=== PATIENT | male | born 1960 | race Caucasian/White ===

== ENCOUNTER → 2016-06-21 | Outpatient (REF) | payer BC, OTHER ==
[~2016-06-21] MED LIST: CARV6.25 PO; EFFE37.527 PO; PRAD150C PO
[2016-06-21 13:50] LABS: ALBUMIN 3.9 GM/DL (3.2-5.2); ALBUMIN/GLOBULIN RATIO 1.39 (1.00-1.93); ALKALINE PHOSPHATASE 56 U/L (45-117); ALT/SGPT 39 U/L (12-78); ANION GAP 6 MEQ/L (8-16); AST/SGOT 21 U/L (15-37); BILIRUBIN,TOTAL 0.6 MG/DL (0.2-1.0); BLOOD UREA NITROGEN 19 MG/DL (7-18); CALCIUM LEVEL 8.8 MG/DL (8.5-10.1); CARBON DIOXIDE LEVEL 31 MEQ/L (21-32); CHLORIDE LEVEL 105 MEQ/L (98-107); CHOLESTEROL LEVEL 122 MG/DL (<200); CREATININE FOR GFR 0.94 MG/DL (0.70-1.30); FERRITIN 81 NG/ML (26-388); GLOMERULAR FILTRATION RATE > 60.0 (>56); GLUCOSE, FASTING 91 MG/DL (70-105); PERCENT SATURATION 39.4 % (19.7-37.4); POTASSIUM SERUM 4.5 MEQ/L (3.5-5.1); SODIUM LEVEL 142 MEQ/L (136-145); TOTAL IRON BINDING CAPACITY 320 UG/DL (250-450); TOTAL PROTEIN 6.7 GM/DL (6.4-8.2); TRIGLYCERIDES LEVEL 114 MG/DL (<150)
[2016-06-24 11:20] LABS: PRETREATED FOLATE FOR RBCFOL 8.5 NG/ML
== END ==
LOC: M SFHCPLAZ 12:48
PROVIDERS: ATTEND Family Medicine
DX: E55.9 Vitamin D deficiency, unspecified (principal); E66.01 Morbid (severe) obesity due to excess calories; R73.01 Impaired fasting glucose; Z12.5 Encounter for screening for malignant neoplasm of prostate; E53.8 Deficiency of other specified B group vitamins; E66.3 Overweight; N40.1 Benign prostatic hyperplasia with lower urinary tract symptoms; R53.83 Other fatigue
CPT/HCPCS: 36415; 80053; 80061; 82306; 82728; 82747; 83036; 83550; 83970; 84425; G0103

== ENCOUNTER → 2016-07-25 | Outpatient (CLI) | payer BC, OTHER ==
[~2016-07-25] MED LIST changes: +E-Z PAQUE 60% w/v SUSP 355ML BOTTLE As Ordered ONE; +E-Z-HD 98% w/w 340GM SUSP BTL As Ordered ONE
--- NOTE | 2016-07-27 10:18 | REP ---
Clinical: Continued weight gain with prior gastric bypass surgery. Technique: Upper GI with small bowel follow-through using barium substrates. Findings: Mandrel Cleaner film of the abdomen and pelvis is unremarkable. The esophagus demonstrates normal motility, mucosal outline, and contour without intrinsic or extrinsic abnormality and there is no evidence for gastroesophageal reflux during examination. The the patient is status post gastric bypass with normal appearance to the residual gastric pouch and no evidence for extravasation into the excluded portion of the stomach. A normal gastroenteric anastomosis is noted with appropriate passage of contrast into the small bowel. Small bowel portion of the examination demonstrates normal mucosal outline, motility and overall appearance to the jejunum and ileum within normal terminal ileum and ileocecal valve identified in the right lower quadrant. Total fluoroscopic time 2 minutes 3 seconds. Impression: 1. Evidence for gastric bypass surgery without complication or abnormality. 2. Normal esophagus and no evidence for gastroesophageal reflux disease. 3. Normal appearance to the small bowel including terminal ileum and ileocecal valve. Signed by Alexey Asher MD 07/27/2016 10:09 A
== END ==
LOC: M RAD 08:29
PROVIDERS: ATTEND Family Medicine
DX: R63.5 Abnormal weight gain (principal); Z98.84 Bariatric surgery status

== ENCOUNTER → 2016-11-09 | Outpatient (CLI) | payer BC, OTHER ==
[~2016-11-09] MED LIST changes: -E-Z PAQUE 60% w/v SUSP 355ML BOTTLE As Ordered ONE; -E-Z-HD 98% w/w 340GM SUSP BTL As Ordered ONE
--- NOTE | 2016-11-09 10:04 | REP ---
RIGHT KNEE, FOUR VIEWS: HISTORY: Pain. There is no acute fracture or dislocation. There is narrowing of the medial knee joint space. Small osteophytes are present on the tibia and patella. IMPRESSION: Degenerative change as described above. Signed by Jan Barry MD 11/09/2016 10:14 A
== END ==
LOC: M WUC 08:56
PROVIDERS: ATTEND Physician Assistant
DX: M25.561 Pain in right knee (principal); M25.761 Osteophyte, right knee; M17.11 Unilateral primary osteoarthritis, right knee

== ENCOUNTER → 2017-08-23 | Outpatient (REF) | payer BC, OTHER ==
[2017-08-23 13:26] LABS: HEMATOCRIT 40.4 % (42.0-52.0); HEMOGLOBIN 13.6 g/dl (13.5-17.5); MEAN CORPUSCULAR HEMOGLOBIN 30.6 pg (27.0-33.0); MEAN CORPUSCULAR HGB CONC 33.7 g/dl (32.0-36.5); PLATELET COUNT, AUTOMATED 192 10^3/uL (150-450); RED BLOOD COUNT 4.44 10^6/uL (4.30-6.10); RED CELL DISTRIBUTION WIDTH 13.7 % (11.5-14.5); WHITE BLOOD COUNT 8.5 10^3/uL (4.0-10.0)
[2017-08-23 13:40] LABS: ANION GAP 4 MEQ/L (8-16); BLOOD UREA NITROGEN 16 MG/DL (7-18); CALCIUM LEVEL 8.6 MG/DL (8.5-10.1); CARBON DIOXIDE LEVEL 30 MEQ/L (21-32); CHLORIDE LEVEL 107 MEQ/L (98-107); CHOLESTEROL LEVEL 121 MG/DL (<200); CREATININE FOR GFR 0.93 MG/DL (0.70-1.30); GLOMERULAR FILTRATION RATE > 60.0 (>56); GLUCOSE, FASTING 81 MG/DL (70-100); HDL CHOLESTEROL 42 MG/DL (>40); LDL CHOLESTEROL 65.2 MG/DL (<100); MAGNESIUM LEVEL 2.1 MG/DL (1.8-2.4); NON-HDL-C 79 MG/DL; POTASSIUM SERUM 4.2 MEQ/L (3.5-5.1); SODIUM LEVEL 141 MEQ/L (136-145); TRIGLYCERIDES LEVEL 69 MG/DL (<150)
== END ==
LOC: M LAB REF 12:52
DX: I48.2 Chronic atrial fibrillation (principal); Z13.220 Encounter for screening for lipoid disorders

== ENCOUNTER → 2017-11-21 | Outpatient (REF) | payer OTHER ==
[2017-11-21 16:03] LABS: BASO # 0.1 10^3/uL (0.0-0.2); BASO % 0.8 % (0.0-1.0); EOS # 0.1 10^3/uL (0.0-0.50); HEMATOCRIT 41.3 % (42.0-52.0); HEMOGLOBIN 14.5 g/dl (13.5-17.5); IMMATURE GRANULOCYTE % 0.4 % (0-3.0); LYMPH # 2.5 10^3/uL (1.5-4.5); LYMPH % 31.8 % (24.0-44.0); MEAN CORPUSCULAR HEMOGLOBIN 31.5 pg (27.0-33.0); MEAN CORPUSCULAR HGB CONC 35.1 g/dl (32.0-36.5); MEAN CORPUSCULAR VOLUME 89.6 fl (80.0-96.0); MONO # 0.8 10^3/uL (0.0-0.8); MONO % 9.6 % (0.0-5.0); NEUTROPHILS # 4.5 10^3/uL (1.8-7.7); NEUTROPHILS % 56.4 % (36.0-66.0); PLATELET COUNT, AUTOMATED 205 10^3/uL (150-450); RED BLOOD COUNT 4.61 10^6/uL (4.30-6.10); RED CELL DISTRIBUTION WIDTH 13.6 % (11.5-14.5); RETIC HEMOGLOBIN EQUIVALENT 35.4 pg (24-36); RETICULOCYTE # 78.8 10^9/L (17-77); RETICULOCYTE % 1.7 % (0.5-1.5)
[2017-11-21 16:13] LABS: ESTIMATED AVERAGE GLUCOSE 120 MG/DL (60-110); HEMOGLOBIN A1c 5.8 %
[2017-11-21 16:14] LABS: PTH INTACT 68.1 PG/ML (18.5-88.0); TOTAL 25(OH) VITAMIN D 44.6 NG/ML (30.0-100.0); VITAMIN B12 LEVEL 437 PG/ML (247-911)
[2017-11-21 16:15] LABS: ALBUMIN/GLOBULIN RATIO 1.25 (1.00-1.93); ALKALINE PHOSPHATASE 47 U/L (45-117); ALT/SGPT 28 U/L (12-78); ANION GAP 5 MEQ/L (8-16); AST/SGOT 17 U/L (7-37); BILIRUBIN,TOTAL 0.8 MG/DL (0.2-1.0); BLOOD UREA NITROGEN 24 MG/DL (7-18); CALCIUM LEVEL 8.8 MG/DL (8.5-10.1); CARBON DIOXIDE LEVEL 32 MEQ/L (21-32); CHLORIDE LEVEL 105 MEQ/L (98-107); CREATININE FOR GFR 0.95 MG/DL (0.70-1.30); FREE T4 0.97 NG/DL (0.76-1.46); GLOMERULAR FILTRATION RATE > 60.0 (>56); GLUCOSE, FASTING 77 MG/DL (70-100); POTASSIUM SERUM 4.2 MEQ/L (3.5-5.1); PSA SCREENING 1.94 NG/ML (< 4.0); SODIUM LEVEL 142 MEQ/L (136-145); THYROID STIMULATING HORMONE 0.915 uIU/ML (0.358-3.740); TOTAL PROTEIN 7.2 GM/DL (6.4-8.2)
[2017-11-23 15:06] LABS: INSULIN LEVEL 5.6 uIU/mL (2.6-24.9)
== END ==
LOC: M SFHCPLAZ 15:42
DX: E55.9 Vitamin D deficiency, unspecified (principal); R73.01 Impaired fasting glucose; E53.8 Deficiency of other specified B group vitamins

== ENCOUNTER → 2018-08-15 | Outpatient (CLI) | payer BC, OTHER ==
[~2018-08-15] MED LIST changes: +EFFE37.5 PO; -EFFE37.527 PO; -PRAD150C PO; +PRAD150C6 PO
--- NOTE | 2018-08-15 16:36 | REP ---
Chest two views HISTORY: Shortness of breath Comparison: 06/16/2009 Linear density is present in the left lower lobe consistent with scar. The right lung is clear. The heart is normal in size. The pulmonary vasculature is normal in appearance. The bony structure is intact. IMPRESSION: No acute disease. Electronically Signed by Jan Barry MD 08/15/2018 04:27 P
== END ==
LOC: M SMT 14:31
PROVIDERS: ATTEND Nurse Practitioner Adult Health
DX: R06.02 Shortness of breath (principal)

== ENCOUNTER → 2018-09-21 | Outpatient (REF) | payer OTHER ==
[2018-09-21 12:05] LABS: BASO % 0.5 % (0.0-1.0); EOS # 0.1 10^3/uL (0.0-0.50); HEMATOCRIT 41.6 % (42.0-52.0); HEMOGLOBIN 14.5 g/dl (13.5-17.5); LYMPH # 2.6 10^3/uL (1.5-4.5); LYMPH % 29.6 % (24.0-44.0); MEAN CORPUSCULAR HGB CONC 34.9 g/dl (32.0-36.5); MEAN CORPUSCULAR VOLUME 91.8 fl (80.0-96.0); MONO % 11.2 % (0.0-5.0); NEUTROPHILS % 57.5 % (36.0-66.0); PLATELET COUNT, AUTOMATED 186 10^3/uL (150-450); RED BLOOD COUNT 4.53 10^6/uL (4.30-6.10); WHITE BLOOD COUNT 8.6 10^3/uL (4.0-10.0)
[2018-09-21 12:25] LABS: CHOLESTEROL RISK RATIO 2.815 (<5)
[2018-09-21 13:41] LABS: HEMOGLOBIN A1c 5.4 %
[2018-09-21 13:55] LABS: HEMATOCRIT 41.6 % (42.0-52.0)
== END ==
LOC: M SFHCPLAZ 09:21
PROVIDERS: ATTEND Family Medicine
DX: Z12.5 Encounter for screening for malignant neoplasm of prostate (principal); E53.8 Deficiency of other specified B group vitamins; R73.01 Impaired fasting glucose; E78.2 Mixed hyperlipidemia
CPT/HCPCS: 36415; 80061; 82607; 82747; 83036; 83525; 85025; G0103

== ENCOUNTER → 2018-09-21 | Outpatient (CLI) | payer BC, OTHER ==
--- NOTE | 2018-09-21 15:46 | REP ---
CHEST FLUORO SNIFF TEST: Fluoroscopy is performed with deep breathing. Both hemidiaphragms move in appropriate direction with inspiration and expiration. There is relatively symmetrical motion bilaterally. There is a slightly greater degree of left diaphragmatic excursion. With inspiration, the degree of depression of the left hemidiaphragm is slightly greater than the right and with expiration, the degree of superior excursion of the left hemidiaphragm is slightly greater than the right. The study is otherwise unremarkable. Electronically Signed by Eduar Toro MD 09/25/2018 10:05 A
== END ==
LOC: M RAD 13:23
PROVIDERS: ATTEND Nurse Practitioner Adult Health
DX: R06.02 Shortness of breath (principal)

== ENCOUNTER → 2018-10-23 | Outpatient (CLI) | payer BC, OTHER ==
[~2018-10-23] MED LIST changes: +METHACHOLINE KIT (J7674) INH ONE
--- NOTE | 2018-10-23 09:41 | PFTRPT ---
Height: 69.00 Inches Weight: 278.00 Lbs BSA: 2.38 Diagnosis: R06.02 DATE OF PROCEDURE: 10/23/2018 ORDERED BY: ABELARDO Roe INTERPRETATION: Study of excellent technical quality. Under protocol, methacholine was administered. At a dose of 0.25 mg or 1.375 CDUs, a 32% decline in the FEV1 was noted. PC of 0.05 is significant. Flow rates did return to baseline post bronchodilator administration. IMPRESSION: Positive methacholine challenge study. MTDD
== END ==
LOC: M CARPUL 09:04
PROVIDERS: ATTEND Nurse Practitioner Adult Health
DX: R06.02 Shortness of breath (principal)
CPT/HCPCS: 94070; J7674

== ENCOUNTER → 2019-10-31 | Outpatient (REF) | payer OTHER ==
[~2019-10-31] MED LIST changes: -METHACHOLINE KIT (J7674) INH ONE
== END ==
LOC: M LAB REF 08:51
PROVIDERS: ATTEND Surgery
DX: D17.21 Benign lipomatous neoplasm of skin and subcutaneous tissue of right arm (principal); D17.22 Benign lipomatous neoplasm of skin and subcutaneous tissue of left arm

== ENCOUNTER → 2020-03-27 | Outpatient (CLI) | payer BC, OTHER ==
--- NOTE | 2020-03-27 10:13 | REPPI ---
INDICATION: LEFT SHOULER PAIN, INJURY BACK IN JULY COMPARISON: None. TECHNIQUE: Internal rotation, external rotation, and Y view. FINDINGS: Mild/early moderate degenerative changes include cortical irregularity at the acromioclavicular joint with inferior spurring at the acromion as well as cortical irregularity to the calcified glenoid rim. Humeral head appears intact and relatively normal. Subacromial space is normal. No obvious calcified loose bodies are identified. No acute fracture or dislocation noted. IMPRESSION: Mild/early moderate degenerative changes. No evidence for acute fracture or dislocation. <Electronically signed by Alexey Asher > 03/27/20 [id number]
== END ==
LOC: M WUC 09:37
PROVIDERS: ATTEND Nurse Practitioner Family
DX: M25.712 Osteophyte, left shoulder (principal); M25.512 Pain in left shoulder

== ENCOUNTER → 2020-10-30 | Outpatient (CLI) | payer BC, OTHER ==
[~2020-10-30] MED LIST changes: +LIDOCAINE 1% MDV 20ML VIAL As Ordered ONE; +methylPREDNISolone SUSP 40MG/ML 1ML VIAL (DEPO MEDROL) As Ordered ONE
--- NOTE | 2020-12-10 11:19 | REP ---
INDICATION: BICIPITAL TENDINITIS LT SHOULDER. COMPARISON: None. TECHNIQUE: The procedure was performed by NERI Montalvo, under the direct supervision of Dr. Cortez. The risks and benefits of the procedure were explained to the patient and an informed consent was obtained both verbally and written. Directly prior to the start of the procedure a formal time-out was completed in the procedure room. FINDINGS: Using ultrasound guidance the left biceps tendon was localized. The skin was prepped and draped in a sterile fashion. A 25 gauge needle was inserted and as it was advanced to the 2 mL of lidocaine was injected as a local anesthetic. Three mL of a solution containing 2 mL 1% lidocaine 10 mg/ml and 1 mL Depo-Medrol 40 milligrams/milliliter was injected into the tendon sheath. The needle was removed and hemostasis was achieved. The patient tolerated the procedure well and there were no immediate complications. After the appropriate amount of monitored convalescence the patient was discharged from the department. IMPRESSION: 1. Ultrasound-guided left biceps tendon sheath injection injection. <Electronically signed by Celeste Hilton > 12/10/20 1005 <Electronically signed by Everett Cortez > 12/10/20 [id number]
== END ==
LOC: M IRPRO 10:33
PROVIDERS: ATTEND Physician Assistant Surgical
DX: M75.22 Bicipital tendinitis, left shoulder (principal)
CPT/HCPCS: 20550; 76942; J1030

== ENCOUNTER → 2020-11-20 | Outpatient (REF) | payer OTHER ==
[~2020-11-20] MED LIST changes: -LIDOCAINE 1% MDV 20ML VIAL As Ordered ONE; -methylPREDNISolone SUSP 40MG/ML 1ML VIAL (DEPO MEDROL) As Ordered ONE
[2020-11-20 11:55] LABS: BASO # 0.1 10^3/uL (0.0-0.2); BASO % 0.8 % (0.0-1.0); EOS # 0.2 10^3/uL (0.0-0.5); LYMPH % 26.6 % (24.0-44.0); MEAN CORPUSCULAR HEMOGLOBIN 31.3 pg (27.0-33.0); MEAN CORPUSCULAR HGB CONC 34.1 g/dl (32.0-36.5); MEAN CORPUSCULAR VOLUME 91.5 fl (80.0-96.0); MONO # 0.7 10^3/uL (0.0-0.8); MONO % 9.9 % (2.0-8.0); NEUTROPHILS # 4.5 10^3/uL (1.5-8.5); NEUTROPHILS % 60.4 % (36.0-66.0); PLATELET COUNT, AUTOMATED 181 10^3/uL (150-450); RED BLOOD COUNT 4.48 10^6/uL (4.30-6.10); WHITE BLOOD COUNT 7.5 10^3/uL (4.0-10.0)
[2020-11-20 12:33] LABS: ALBUMIN 3.9 GM/DL (3.2-5.2); ALT/SGPT 43 U/L (12-78); BILIRUBIN,TOTAL 0.7 MG/DL (0.2-1.0); BLOOD UREA NITROGEN 15 MG/DL (7-18); CALCIUM LEVEL 8.8 MG/DL (8.5-10.1); CARBON DIOXIDE LEVEL 31 MEQ/L (21-32); CHLORIDE LEVEL 104 MEQ/L (98-107); CHOLESTEROL LEVEL 108 MG/DL (<200); CREATININE FOR GFR 1.09 MG/DL (0.70-1.30); GLOMERULAR FILTRATION RATE > 60.0 (>56); GLUCOSE, FASTING 89 MG/DL (70-100); HDL CHOLESTEROL 40 MG/DL (>40); LDL CHOLESTEROL 58 MG/DL (<100); NON-HDL-C 68 MG/DL; POTASSIUM SERUM 4.8 MEQ/L (3.5-5.1); SODIUM LEVEL 140 MEQ/L (136-145); TOTAL 25(OH) VITAMIN D 41.9 NG/ML (30.0-100.0); TOTAL PROTEIN 6.7 GM/DL (6.4-8.2); TRIGLYCERIDES LEVEL 51 MG/DL (<150)
== END ==
LOC: M SFHCCLAY 07:05
PROVIDERS: ATTEND Nurse Practitioner Family
DX: E78.2 Mixed hyperlipidemia (principal); R73.01 Impaired fasting glucose; Z12.5 Encounter for screening for malignant neoplasm of prostate; E55.9 Vitamin D deficiency, unspecified
CPT/HCPCS: 80053; 80061; 82306; 85025; G0103

== ENCOUNTER → 2021-06-17 | Outpatient (REF) | payer OTHER | LOC: M SFHCLERA 11:06 | PROVIDERS: ATTEND Family Medicine | DX: R31.0 Gross hematuria (principal) ==

== ENCOUNTER → 2021-07-09 | Outpatient (REF) | payer OTHER ==
[2021-07-09 17:12] LABS: APPEARANCE, URINE CLEAR (CLEAR); BACTERIA, URINE AUTO NEGATIVE (NEGATIVE); BILIRUBIN, URINE AUTO NEGATIVE (NEGATIVE); BLOOD, URINE BLOOD NEGATIVE (NEGATIVE); COLOR, URINE YELLOW (YELLOW); GLUCOSE, URINE (UA) AUTO NEGATIVE (NEGATIVE); KETONE, URINE AUTO NEGATIVE (NEGATIVE); LEUKOCYTE ESTERASE, URINE AUTO NEGATIVE (NEGATIVE); NITRITE, URINE AUTO NEGATIVE (NEGATIVE); PROTEIN, URINE AUTO NEGATIVE (NEGATIVE); RBC, URINE AUTO 0 /HPF (0-3); SPECIFIC GRAVITY URINE AUTO 1.012 (1.002-1.035); SQUAMOUS EPITHELIAL CELL UR AU 0 /HPF (0-6); UROBILINOGEN, URINE AUTO 0.2 mg/dL (0.0-2.0); WBC, URINE AUTO 1 /HPF (0-3)
== END ==
LOC: M SMT 16:37
PROVIDERS: ATTEND Physician Assistant
DX: R31.0 Gross hematuria (principal)

== ENCOUNTER → 2021-07-19 | Outpatient (CLI) | payer BC, OTHER | LOC: M RAD 15:34 | PROVIDERS: ATTEND Physician Assistant | DX: R31.0 Gross hematuria (principal) ==

== ENCOUNTER → 2021-08-03 | Outpatient (REF) | payer OTHER ==
[2021-08-03 12:46] LABS: HEMATOCRIT 39.3 % (42.0-52.0); HEMOGLOBIN 13.5 g/dl (13.5-17.5); MEAN CORPUSCULAR HEMOGLOBIN 30.8 pg (27.0-33.0); MEAN CORPUSCULAR HGB CONC 34.4 g/dl (32.0-36.5); MEAN CORPUSCULAR VOLUME 89.5 fl (80.0-96.0); PLATELET COUNT, AUTOMATED 182 10^3/uL (150-450); RED BLOOD COUNT 4.39 10^6/uL (4.30-6.10); WHITE BLOOD COUNT 9.1 10^3/uL (4.0-10.0)
[2021-08-03 13:14] LABS: BLOOD UREA NITROGEN 20 MG/DL (7-18); CALCIUM LEVEL 9.4 MG/DL (8.5-10.1); CARBON DIOXIDE LEVEL 31 MEQ/L (21-32); CHLORIDE LEVEL 105 MEQ/L (98-107); CREATININE FOR GFR 1.03 MG/DL (0.70-1.30); GLOMERULAR FILTRATION RATE > 60.0 (>56); GLUCOSE, FASTING 93 MG/DL (70-100); MAGNESIUM LEVEL 1.9 MG/DL (1.8-2.4); POTASSIUM SERUM 4.7 MEQ/L (3.5-5.1); SODIUM LEVEL 140 MEQ/L (136-145)
== END ==
LOC: M LABDRAWC 11:31
PROVIDERS: ATTEND Physician Assistant
DX: I48.21 Permanent atrial fibrillation (principal)

== ENCOUNTER → 2021-08-03 | Outpatient (REF) | payer OTHER ==
[2021-08-03 13:20] LABS: BLOOD UREA NITROGEN 21 MG/DL (7-18); CALCIUM LEVEL 9.5 MG/DL (8.5-10.1); CARBON DIOXIDE LEVEL 31 MEQ/L (21-32); CHLORIDE LEVEL 106 MEQ/L (98-107); CREATININE FOR GFR 1.05 MG/DL (0.70-1.30); GLOMERULAR FILTRATION RATE > 60.0 (>56); GLUCOSE, FASTING 97 MG/DL (70-100); POTASSIUM SERUM 4.5 MEQ/L (3.5-5.1); SODIUM LEVEL 141 MEQ/L (136-145)
== END ==
LOC: M SFHCLERA 07:10
PROVIDERS: ATTEND Family Medicine
DX: R31.0 Gross hematuria (principal)

== ENCOUNTER → 2021-09-01 | Outpatient (REF) | payer BC, OTHER ==
[2021-09-01 12:00] LABS: HEMATOCRIT 40.1 % (42.0-52.0); HEMOGLOBIN 13.5 g/dl (13.5-17.5); MEAN CORPUSCULAR HGB CONC 33.7 g/dl (32.0-36.5); PLATELET COUNT, AUTOMATED 277 10^3/uL (150-450); RED BLOOD COUNT 4.36 10^6/uL (4.30-6.10); WHITE BLOOD COUNT 10.4 10^3/uL (4.0-10.0)
[2021-09-01 12:59] LABS: CALCIUM LEVEL 9.7 MG/DL (8.5-10.1); CREATININE FOR GFR 1.38 MG/DL (0.70-1.30); GLOMERULAR FILTRATION RATE 56.1 (>56); POTASSIUM SERUM 4.9 MEQ/L (3.5-5.1)
== END ==
LOC: M LABDRAWC 11:20
PROVIDERS: ATTEND Urology
DX: N28.89 Other specified disorders of kidney and ureter (principal)

== ENCOUNTER → 2021-12-21 | Outpatient (CLI) | payer BC, OTHER ==
[2021-12-21 15:41] LABS: CALCIUM LEVEL 9.8 MG/DL (8.5-10.1); CREATININE FOR GFR 1.44 MG/DL (0.70-1.30); GLOMERULAR FILTRATION RATE 53.5 (>56); POTASSIUM SERUM 4.4 MEQ/L (3.5-5.1)
== END ==
LOC: M PLALAB 13:06
PROVIDERS: ATTEND Student in an Organized Health Care Education/Training Program
DX: N18.31 Chronic kidney disease, stage 3a (principal)

== ENCOUNTER → 2022-06-13 | Outpatient (REF) | payer OTHER ==
[2022-06-13 12:33] LABS: HEMATOCRIT 40.5 % (42.0-52.0); HEMOGLOBIN 13.5 g/dl (13.5-17.5); MEAN CORPUSCULAR HGB CONC 33.3 g/dl (32.0-36.5); MEAN CORPUSCULAR VOLUME 92.9 fl (80.0-96.0); PLATELET COUNT, AUTOMATED 170 10^3/uL (150-450); RED BLOOD COUNT 4.36 10^6/uL (4.30-6.10); WHITE BLOOD COUNT 6.4 10^3/uL (4.0-10.0)
[2022-06-13 13:24] LABS: ALBUMIN 3.9 G/DL (3.2-5.2); BILIRUBIN,TOTAL 0.5 MG/DL (0.3-1.2); CALCIUM LEVEL 9.5 MG/DL (8.5-10.1); CHOLESTEROL RISK RATIO 3.21 (<5); CREATININE FOR GFR 1.31 MG/DL (0.70-1.30); GLOMERULAR FILTRATION RATE 59.6 (>56); HDL CHOLESTEROL 37.6 MG/DL (>40); LDL CHOLESTEROL 71.8 MG/DL (<100); MAGNESIUM LEVEL 1.9 MG/DL (1.8-2.4); POTASSIUM SERUM 4.4 MMOL/L (3.5-5.1); TOTAL PROTEIN 6.5 G/DL (5.7-8.2)
== END ==
LOC: M LABDRAWC 07:23
PROVIDERS: ATTEND Physician Assistant
DX: I48.21 Permanent atrial fibrillation (principal); Z13.220 Encounter for screening for lipoid disorders

== ENCOUNTER → 2022-07-05 | Outpatient (REF) | payer OTHER ==
[2022-07-05 12:11] LABS: ALBUMIN 3.8 G/DL (3.2-5.2); CALCIUM LEVEL 9.1 MG/DL (8.5-10.1); CREATININE FOR GFR 1.46 MG/DL (0.70-1.30); GLOMERULAR FILTRATION RATE 52.6 (>56); PHOSPHORUS LEVEL 3.6 MG/DL (2.5-4.9); POTASSIUM SERUM 4.5 MMOL/L (3.5-5.1)
== END ==
LOC: M LABDRAWC 11:12
PROVIDERS: ATTEND Student in an Organized Health Care Education/Training Program
DX: N18.31 Chronic kidney disease, stage 3a (principal); Z90.5 Acquired absence of kidney; N28.1 Cyst of kidney, acquired

== ENCOUNTER → 2022-07-07 | Outpatient (CLI) | payer BC, OTHER | LOC: M RAD 14:14 | PROVIDERS: ATTEND Student in an Organized Health Care Education/Training Program | DX: N18.31 Chronic kidney disease, stage 3a (principal); N28.1 Cyst of kidney, acquired ==

== ENCOUNTER → 2022-12-09 | Outpatient (CLI) | payer BC, OTHER ==
[2022-12-09 16:58] LABS: CALCIUM LEVEL 9.2 MG/DL (8.3-10.6); CREATININE FOR GFR 1.38 MG/DL (0.70-1.30); POTASSIUM SERUM 4.6 MMOL/L (3.5-5.1)
== END ==
LOC: M WUC 13:00
PROVIDERS: ATTEND Urology
DX: N40.1 Benign prostatic hyperplasia with lower urinary tract symptoms (principal)

== ENCOUNTER → 2022-12-09 | Outpatient (CLI) | payer BC, OTHER | LOC: M WUC 12:57 | PROVIDERS: ATTEND Student in an Organized Health Care Education/Training Program | DX: N18.31 Chronic kidney disease, stage 3a (principal); Z90.5 Acquired absence of kidney; N28.1 Cyst of kidney, acquired ==

== ENCOUNTER → 2023-10-11 | Outpatient (REF) | payer OTHER ==
[~2023-10-11] MED LIST changes: -EFFE37.5 PO; +EFFE37.52 PO
[2023-10-11 19:02] LABS: BASO % 0.5 % (0.0-1.0); EOS # 0.1 10^3/uL (0.0-0.5); EOS % 1.2 % (0.0-3.0); HEMATOCRIT 41.6 % (42.0-52.0); HEMOGLOBIN 14.2 g/dl (13.5-17.5); LYMPH # 2.2 10^3/uL (1.5-5.0); MEAN CORPUSCULAR HEMOGLOBIN 30.9 pg (27.0-33.0); MEAN CORPUSCULAR HGB CONC 34.1 g/dl (32.0-36.5); MEAN CORPUSCULAR VOLUME 90.4 fl (80.0-96.0); MONO # 0.8 10^3/uL (0.0-0.8); MONO % 10.1 % (2.0-8.0); NEUTROPHILS # 4.5 10^3/uL (1.5-8.5); NEUTROPHILS % 59.1 % (36.0-66.0); PLATELET COUNT, AUTOMATED 192 10^3/uL (150-450); WHITE BLOOD COUNT 7.6 10^3/uL (4.0-10.0)
[2023-10-11 19:27] LABS: ALBUMIN 3.9 G/DL (3.2-5.2); BILIRUBIN,TOTAL 0.6 MG/DL (0.3-1.2); CALCIUM LEVEL 9.5 MG/DL (8.3-10.6); CHOLESTEROL RISK RATIO 3.01 (<5); CREATININE FOR GFR 1.43 MG/DL (0.70-1.30); GLOMERULAR FILTRATION RATE 53.5 (>49); HDL CHOLESTEROL 40.8 MG/DL (>40); LDL CHOLESTEROL 68.8 MG/DL (<100); MAGNESIUM LEVEL 1.9 MG/DL (1.8-2.4); NON-HDL-C 82.2 MG/DL; POTASSIUM SERUM 5.1 MMOL/L (3.5-5.1); TOTAL PROTEIN 6.7 G/DL (5.7-8.2)
== END ==
LOC: M LABDRAWC 16:46
PROVIDERS: ATTEND Physician Assistant
DX: I48.21 Permanent atrial fibrillation (principal); I50.32 Chronic diastolic (congestive) heart failure; Z13.220 Encounter for screening for lipoid disorders

== ENCOUNTER → 2023-10-13 | Outpatient (CLI) | payer BC, OTHER | LOC: M EKG 15:59 | PROVIDERS: ATTEND Physician Assistant | DX: R55 Syncope and collapse (principal) ==

== ENCOUNTER → 2023-11-16 | Outpatient (CLI) | payer BC | LOC: M EKG 15:48 | PROVIDERS: ATTEND Physician Assistant | DX: I49.5 Sick sinus syndrome (principal); I48.20 Chronic atrial fibrillation, unspecified ==

== ENCOUNTER → 2023-12-11 | Outpatient (CLI) | payer BC ==
[2023-12-11 13:23] LABS: PROSTATIC SPECIFIC AG MONITOR 2.63 NG/ML (< 4.00)
[2023-12-11 13:25] LABS: CALCIUM LEVEL 9.6 MG/DL (8.3-10.6); CREATININE FOR GFR 1.34 MG/DL (0.70-1.30); GLOMERULAR FILTRATION RATE 57.7 (>49); POTASSIUM SERUM 4.4 MMOL/L (3.5-5.1)
== END ==
LOC: M WUC 09:24
PROVIDERS: ATTEND Urology
DX: N13.30 Unspecified hydronephrosis (principal); N40.1 Benign prostatic hyperplasia with lower urinary tract symptoms

== ENCOUNTER → 2023-12-11 | Outpatient (CLI) | payer BC ==
[2023-12-11 13:24] LABS: BILIRUBIN,TOTAL 0.8 MG/DL (0.3-1.2); CALCIUM LEVEL 9.4 MG/DL (8.3-10.6); CHOLESTEROL RISK RATIO 2.78 (<5); CREATININE FOR GFR 1.33 MG/DL (0.70-1.30); GLOMERULAR FILTRATION RATE 58.2 (>49); HDL CHOLESTEROL 39.1 MG/DL (>40); LDL CHOLESTEROL 55.7 MG/DL (<100); NON-HDL-C 69.9 MG/DL; POTASSIUM SERUM 4.3 MMOL/L (3.5-5.1); TOTAL PROTEIN 6.6 G/DL (5.7-8.2)
== END ==
LOC: M WUC 09:22
PROVIDERS: ATTEND Family Medicine
DX: I10 Essential (primary) hypertension (principal); E78.2 Mixed hyperlipidemia

== ENCOUNTER → 2024-04-10 | Outpatient (CLI) | payer BC | LOC: M EKG 15:01 | PROVIDERS: ATTEND Physician Assistant | DX: I48.21 Permanent atrial fibrillation (principal) ==

== ENCOUNTER → 2024-05-31 | Outpatient (REF) | payer BC, OTHER ==
[2024-05-31 11:34] LABS: HEMATOCRIT 40.9 % (42.0-52.0); MEAN CORPUSCULAR HEMOGLOBIN 30.9 pg (27.0-33.0); MEAN CORPUSCULAR HGB CONC 34.2 g/dl (32.0-36.5); MEAN CORPUSCULAR VOLUME 90.3 fl (80.0-96.0); PLATELET COUNT, AUTOMATED 172 10^3/uL (150-450); RED BLOOD COUNT 4.53 10^6/uL (4.30-6.10); WHITE BLOOD COUNT 6.3 10^3/uL (4.0-10.0)
[2024-05-31 11:41] LABS: CALCIUM LEVEL 9.7 MG/DL (8.3-10.6); CREATININE FOR GFR 1.49 MG/DL (0.70-1.30); MAGNESIUM LEVEL 1.8 MG/DL (1.8-2.4); POTASSIUM SERUM 4.2 MMOL/L (3.5-5.1)
== END ==
LOC: M LABDRAWC 10:37
PROVIDERS: ATTEND Physician Assistant
DX: I48.21 Permanent atrial fibrillation (principal)

== ENCOUNTER → 2024-08-19 | Outpatient (CLI) | payer BC, OTHER ==
[2024-08-19 13:36] LABS: CALCIUM LEVEL 8.9 MG/DL (8.3-10.6); CREATININE FOR GFR 1.38 MG/DL (0.70-1.30); GLOMERULAR FILTRATION RATE 57.8 (>49); POTASSIUM SERUM 4.8 MMOL/L (3.5-5.1)
== END ==
LOC: M PLALAB 10:03
PROVIDERS: ATTEND Student in an Organized Health Care Education/Training Program
DX: N18.31 Chronic kidney disease, stage 3a (principal)

== ENCOUNTER → 2024-12-18 | Outpatient (REF) | payer BC ==
[~2024-12-18] MED LIST changes: +B-122500 PO; +CHOL25CA2 PO; +LISI2.5T9 PO; +LUNE2TAB28 PO; +METO1TAB32 PO; +WELLTAB38 PO; +XARE20TA PO
[2024-12-18 13:05] LABS: BASO # 0.1 10^3/uL (0.0-0.2); BASO % 1.0 % (0.0-1.0); EOS # 0.1 10^3/uL (0.0-0.5); EOS % 1.9 % (0.0-3.0); LYMPH # 2.0 10^3/uL (1.5-5.0); LYMPH % 31.7 % (24.0-44.0); MONO # 0.6 10^3/uL (0.0-0.8); MONO % 9.8 % (2.0-8.0); NEUTROPHILS # 3.5 10^3/uL (1.5-8.5); NEUTROPHILS % 55.4 % (36.0-66.0); PLATELET COUNT, AUTOMATED 182 10^3/uL (150-450)
[2024-12-18 13:06] LABS: ALT/SGPT 28.0 U/L (7.0-40); AST/SGOT 28.0 U/L (<34); CALCIUM LEVEL 9.2 MG/DL (8.3-10.6); CARBON DIOXIDE LEVEL 26.0 MMOL/L (20-31); CHLORIDE LEVEL 107.0 MMOL/L (98-107); CHOLESTEROL LEVEL 104.0 MG/DL (<200); CHOLESTEROL RISK RATIO 2.97 (<5); CREATININE FOR GFR 1.27 MG/DL (0.70-1.30); GLOMERULAR FILTRATION RATE 63.9 (>49); LDL CHOLESTEROL 58.0 MG/DL (<100); NON-HDL-C 69.0 MG/DL; POTASSIUM SERUM 4.3 MMOL/L (3.5-5.1); SODIUM LEVEL 143.0 MMOL/L (136-145); TRIGLYCERIDES LEVEL 55.0 MG/DL (<150)
[2024-12-18 13:07] LABS: TOTAL 25(OH) VITAMIN D 58.8 NG/ML (20.0-100.0)
[2024-12-18 14:37] LABS: ESTIMATED AVERAGE GLUCOSE 108.0 MG/DL (60-110)
== END ==
LOC: M SFHCLERA 09:28
PROVIDERS: ATTEND Family Medicine
DX: Z00.00 Encounter for general adult medical examination without abnormal findings (principal); E55.9 Vitamin D deficiency, unspecified; N18.30 Chronic kidney disease, stage 3 unspecified; E78.2 Mixed hyperlipidemia

== ENCOUNTER → 2024-12-18 | Outpatient (REF) | payer OTHER ==
[2024-12-20 09:45] LABS: CALCIUM LEVEL 9.1 MG/DL (8.3-10.6); CARBON DIOXIDE LEVEL 26.0 MMOL/L (20-31); CHLORIDE LEVEL 107.0 MMOL/L (98-107); CREATININE FOR GFR 1.29 MG/DL (0.70-1.30); GLOMERULAR FILTRATION RATE 62.7 (>49); POTASSIUM SERUM 4.3 MMOL/L (3.5-5.1); PROSTATIC SPECIFIC AG MONITOR 2.65 NG/ML (< 4.00); SODIUM LEVEL 143.0 MMOL/L (136-145)
== END ==
LOC: M LABDRAWC 09:25
PROVIDERS: ATTEND Nurse Practitioner Family
DX: N28.89 Other specified disorders of kidney and ureter (principal)

== ENCOUNTER 2025-01-03 07:27 | Day surgery (SDC) | payer BC ==
[~2025-01-03] VITALS: Ht 177.8 cm; Wt 101.8 kg
[2025-01-03] MEDS ORDERED: CARV3.12 PO (07:49)
[2025-01-03 08:53] VITALS: BP 133/83; TEMP 97.6; O2SAT 97
== END 2025-01-03 09:08 | disposition home or self-care (01) ==
LOC: M OPP 07:27
PROVIDERS: ATTEND Surgery
DX: Z12.11 Encounter for screening for malignant neoplasm of colon (principal); K64.1 Second degree hemorrhoids; Z79.01 Long term (current) use of anticoagulants; I48.91 Unspecified atrial fibrillation; Z95.0 Presence of cardiac pacemaker; G47.30 Sleep apnea, unspecified; Z79.899 Other long term (current) drug therapy